=== PATIENT | female | born 1950 | race Caucasian/White ===

== ENCOUNTER → 2023-09-19 09:41 | Outpatient (REF) | payer MEDICARE, BC, SELFPAY | LOC: PAVMRI 09:41 | PROVIDERS: ATTENDING PHYSICIAN Nurse Practitioner Primary Care | DX: R29.818 Other symptoms and signs involving the nervous system (principal); R47.01 Aphasia; G44.89 Other headache syndrome | CPT/HCPCS: 70553; A9575 ==

== ENCOUNTER → 2023-10-19 07:34 | Outpatient (REF) | payer MEDICARE, BC, SELFPAY | LOC: EMG 07:34 | PROVIDERS: ATTENDING PHYSICIAN Nurse Practitioner Family; FAMILY PHYSICIAN Nurse Practitioner Primary Care | DX: R20.2 Paresthesia of skin (principal); R20.0 Anesthesia of skin | CPT/HCPCS: 95886; 95911 ==

== ENCOUNTER → 2023-11-01 09:05 | Outpatient (REF) | payer MEDICARE, BC, SELFPAY | LOC: RAD 09:05 | PROVIDERS: ATTENDING PHYSICIAN Nurse Practitioner; FAMILY PHYSICIAN Nurse Practitioner Primary Care | DX: N39.0 Urinary tract infection, site not specified (principal) | CPT/HCPCS: 76770; 76856 ==

== ENCOUNTER → 2023-11-07 13:09 | Outpatient (REF) | payer MEDICARE, BC, SELFPAY | LOC: RAD 13:09 | PROVIDERS: ATTENDING PHYSICIAN Nurse Practitioner Primary Care | DX: R29.818 Other symptoms and signs involving the nervous system (principal); E78.2 Mixed hyperlipidemia; R55 Syncope and collapse | CPT/HCPCS: 93880 ==

== ENCOUNTER 2023-12-18 13:28 | Outpatient (RCR) | payer MEDICARE, BC, SELFPAY | END 2023-12-18 23:59 | disposition home or self-care (01) | LOC: RPT 13:28 | PROVIDERS: ATTENDING PHYSICIAN Nurse Practitioner; FAMILY PHYSICIAN Nurse Practitioner Primary Care | DX: K59.00 Constipation, unspecified (principal); N81.6 Rectocele; N39.0 Urinary tract infection, site not specified; Z73.6 Limitation of activities due to disability | CPT/HCPCS: 97110; 97161; 97530 ==

== ENCOUNTER → 2023-12-28 10:51 | Outpatient (REF) | payer MEDICARE, BC, SELFPAY | LOC: WDC 10:51 | PROVIDERS: ATTENDING PHYSICIAN Obstetrics & Gynecology; FAMILY PHYSICIAN Nurse Practitioner Primary Care | DX: Z12.31 Encounter for screening mammogram for malignant neoplasm of breast (principal) | CPT/HCPCS: 77063; 77067 ==

== ENCOUNTER → 2024-01-09 10:12 | Outpatient (REF) | payer MEDICARE, BC, SELFPAY | LOC: RAD 10:12 | PROVIDERS: ATTENDING PHYSICIAN Obstetrics & Gynecology; FAMILY PHYSICIAN Nurse Practitioner Primary Care | DX: Z78.0 Asymptomatic menopausal state (principal) | CPT/HCPCS: 77080 ==

== ENCOUNTER 2024-01-15 12:57 | Outpatient (RCR) | payer MEDICARE, BC, SELFPAY | END 2024-01-15 23:59 | disposition home or self-care (01) | LOC: RPT 12:57 | PROVIDERS: ATTENDING PHYSICIAN Nurse Practitioner; FAMILY PHYSICIAN Nurse Practitioner Primary Care | DX: K59.00 Constipation, unspecified (principal); N81.6 Rectocele; N39.0 Urinary tract infection, site not specified; Z73.6 Limitation of activities due to disability | CPT/HCPCS: 97110 ==

== ENCOUNTER 2024-02-06 09:56 | Outpatient (RCR) | payer MEDICARE, BC, SELFPAY | END 2024-02-06 23:59 | disposition home or self-care (01) | LOC: RPT 09:56 | PROVIDERS: ATTENDING PHYSICIAN Nurse Practitioner; FAMILY PHYSICIAN Nurse Practitioner Primary Care | DX: K59.00 Constipation, unspecified (principal); N81.6 Rectocele; N39.0 Urinary tract infection, site not specified; Z73.6 Limitation of activities due to disability | CPT/HCPCS: 97110; 97140 ==

== ENCOUNTER 2024-03-17 09:57 | Outpatient (RCR) | payer MEDICARE, BC, SELFPAY | END 2024-03-17 23:59 | disposition home or self-care (01) | LOC: RPT 09:57 | PROVIDERS: ATTENDING PHYSICIAN Nurse Practitioner; FAMILY PHYSICIAN Nurse Practitioner Primary Care | DX: K59.00 Constipation, unspecified (principal); N81.6 Rectocele; N39.0 Urinary tract infection, site not specified; Z73.6 Limitation of activities due to disability | CPT/HCPCS: 97110; 97112; 97140 ==

== ENCOUNTER → 2024-04-16 09:37 | Outpatient (REF) | payer MEDICARE, BC, SELFPAY | LOC: WDC 09:37 | PROVIDERS: ATTENDING PHYSICIAN Nurse Practitioner Primary Care | DX: N64.4 Mastodynia (principal) | CPT/HCPCS: 76642; 77061; 77065 ==

== ENCOUNTER → 2024-06-19 13:03 | Outpatient (REF) | payer MEDICARE, BC, SELFPAY | LOC: HWEVLT 13:03 | PROVIDERS: ATTENDING PHYSICIAN Radiology Diagnostic Radiology | DX: I83.893 Varicose veins of bilateral lower extremities with other complications (principal) | CPT/HCPCS: 93970 ==

== ENCOUNTER → 2024-07-23 14:48 | Outpatient (REF) | payer MEDICARE, BC, SELFPAY | LOC: HWEVLT 14:48 | PROVIDERS: ATTENDING PHYSICIAN Radiology Vascular & Interventional Radiology | DX: I83.891 Varicose veins of right lower extremity with other complications (principal) | CPT/HCPCS: 36478 ==

== ENCOUNTER → 2024-08-06 11:25 | Outpatient (REF) | payer MEDICARE, BC, SELFPAY | LOC: HWEVLT 11:25 | PROVIDERS: ATTENDING PHYSICIAN Radiology Diagnostic Radiology | DX: I83.891 Varicose veins of right lower extremity with other complications (principal) | CPT/HCPCS: 93971 ==

== ENCOUNTER → 2025-01-14 12:13 | Outpatient (REF) | payer MEDICARE, BC, SELFPAY | LOC: WDC 12:13 | PROVIDERS: ATTENDING PHYSICIAN Obstetrics & Gynecology; FAMILY PHYSICIAN Nurse Practitioner Primary Care | DX: Z12.31 Encounter for screening mammogram for malignant neoplasm of breast (principal) | CPT/HCPCS: 77063; 77067 ==

== ENCOUNTER → 2025-01-15 13:02 | Outpatient (REF) | payer MEDICARE, BC, SELFPAY | LOC: RAD 13:02 | PROVIDERS: ATTENDING PHYSICIAN Nurse Practitioner Primary Care | DX: S90.32XA Contusion of left foot, initial encounter (principal) | CPT/HCPCS: 73630 ==

== ENCOUNTER 2025-06-02 06:25 | Day surgery (SDC) | payer MEDICARE, BC, SELFPAY | END 2025-06-02 11:59 | disposition home or self-care (01) | LOC: GI 06:25 | PROVIDERS: ATTENDING PHYSICIAN Student in an Organized Health Care Education/Training Program; FAMILY PHYSICIAN Nurse Practitioner Primary Care | DX: R12 Heartburn (principal); K22.89 Other specified disease of esophagus; Q45.3 Other congenital malformations of pancreas and pancreatic duct | CPT/HCPCS: 43239; 88305; 88342 ==

== ENCOUNTER → 2025-07-03 07:16 | Outpatient (REF) | payer MEDICARE, BC, SELFPAY | LOC: RAD 07:16 | PROVIDERS: ATTENDING PHYSICIAN Student in an Organized Health Care Education/Training Program; FAMILY PHYSICIAN Nurse Practitioner Primary Care | DX: R10.13 Epigastric pain (principal) | CPT/HCPCS: 76700 ==

== ENCOUNTER → 2025-07-17 09:43 | Outpatient (REF) | payer MEDICARE, BC, SELFPAY | LOC: RCS 09:43 | PROVIDERS: ATTENDING PHYSICIAN Nurse Practitioner Primary Care; OTHER PHYSICIAN Internal Medicine | DX: E78.2 Mixed hyperlipidemia (principal); R06.02 Shortness of breath | CPT/HCPCS: 93017; 93350 ==

== ENCOUNTER → 2025-07-24 06:37 | Outpatient (REF) | payer MEDICARE, BC, SELFPAY | LOC: RAD 06:37 | PROVIDERS: ATTENDING PHYSICIAN Student in an Organized Health Care Education/Training Program; FAMILY PHYSICIAN Nurse Practitioner Primary Care | DX: R10.10 Upper abdominal pain, unspecified (principal) | CPT/HCPCS: 74177; Q9967 ==

== ENCOUNTER → 2025-08-15 09:31 | Outpatient (REF) | payer MEDICARE, BC, SELFPAY | LOC: RCS 09:31 | PROVIDERS: ATTENDING PHYSICIAN Nurse Practitioner Primary Care; REFERRING PHYSICIAN Internal Medicine | DX: R42 Dizziness and giddiness (principal); R06.02 Shortness of breath | CPT/HCPCS: 93306 ==